=== PATIENT | female | born 1955 | race Caucasian/White ===

== ENCOUNTER 2017-08-12 07:01 | Day surgery (SDC) | payer OTHER ==
[~2017-08-12] VITALS: Ht 170.2 cm; Wt 113.3 kg
[~2017-08-12 07:01] MED LIST: ASPI1TAB PO; CALC12502 PO; CARV25TA PO; IRON1TAB PO; K-TA1TAB PO; LISI10TA4 PO; MAGN1TAB25 PO; MULT1TAB16 PO; TORS10TA3 PO; VITA-176 PO; VITA500T53 PO
[2017-08-12] MEDS ORDERED: NS 1,000 ML IV ONE (07:30)
[2017-08-12] MEDS ORDERED: LIDOCAINE 2% INJ 100 MG/5 ML SDV (FOR ANES.) As Ordered ONE (08:40)
[2017-08-12] MEDS ORDERED: PROPOFOL 200 MG/20 ML VIAL As Ordered ONE ×2 (08:40→08:59)
--- NOTE | 2017-08-12 09:17 | ROOR ---
Patient Name: Renetta Bunn Procedure Date: 08/12/2017 8:32 AM Date of : 1955 Age: 61 Room: [facility] Gender: Female Note Status: Finalized Procedure: Colonoscopy Indications: Screening for colorectal malignant neoplasm Providers: Wilfredo Bergeron MD Referring MD: ISSA JONAS MD Requesting Provider: Medicines: Monitored Anesthesia Care Complications: No immediate complications. Procedure: Pre-Anesthesia Assessment: - Prior to the procedure, a History and Physical was performed, and patient medications and allergies were reviewed. The patient is competent. The risks and benefits of the procedure and the sedation options and risks were discussed with the patient. All questions were answered and informed consent was obtained. Patient identification and proposed procedure were verified by the physician, the nurse and the automobile body customizer in the procedure room. Mental Status Examination: alert and oriented. Airway Examination: normal oropharyngeal airway and neck mobility. Respiratory Examination: clear to auscultation. CV Examination: normal. Prophylactic Antibiotics: The patient does not require prophylactic antibiotics. Prior Anticoagulants: The patient has taken no previous anticoagulant or antiplatelet agents. ASA Grade Assessment: II - A patient with mild systemic disease. After reviewing the risks and benefits, the patient was deemed in satisfactory condition to undergo the procedure. The anesthesia plan was to use moderate sedation / analgesia (conscious sedation). Immediately prior to administration of medications, the patient was re-assessed for adequacy to receive sedatives. The heart rate, respiratory rate, oxygen saturations, blood pressure, adequacy of pulmonary ventilation, and response to care were monitored throughout the procedure. The physical status of the patient was re-assessed after the procedure. The Colonoscope was introduced through the anus and advanced to the cecum, identified by appendiceal orifice and ileocecal valve. The colonoscopy was performed without difficulty. The patient tolerated the procedure well. The quality of the bowel preparation was good. The ileocecal valve, appendiceal orifice, and rectum were photographed. Scope insertion time was 4 minutes. Scope withdrawal time was 10 minutes. The total duration of the procedure was 14 minutes. Findings: The perianal and digital rectal examinations were normal. Multiple small and large-mouthed diverticula were found from sigmoid to ascending colon. There was no evidence of diverticular bleeding. Localized mild inflammation characterized by congestion (edema), erythema and granularity was found in the distal sigmoid colon around the diverticular opening - suspicious for focal diverticulitis. Biopsies were taken with a cold forceps for histology. Verification of patient identification for the specimen was done by the physician and nurse using the patient's name, date and medical record number. Estimated blood loss was minimal. For hemostasis, one hemostatic clip was successfully placed. There was no bleeding at the end of the procedure. Non-bleeding external and internal hemorrhoids were found during retroflexion. The hemorrhoids were medium-sized. Impression: - Severe diverticulosis from sigmoid to ascending colon. There was no evidence of diverticular bleeding. - Localized mild inflammation was found in the distal sigmoid colon. Biopsied. Clip was placed. - Non-bleeding external and internal hemorrhoids. Recommendation: - Patient has a contact number available for emergencies. The signs and symptoms of potential delayed complications were discussed with the patient. Return to normal activities tomorrow. Written discharge instructions were provided to the patient. - High fiber diet. - Continue present medications. - Cipro (ciprofloxacin) 500 mg PO BID for 5 days. - Flagyl (metronidazole) 500 mg PO TID for 5 days. - Await pathology results. - Repeat colonoscopy in 10 years for screening purposes. - Return to GI clinic in 10 years. - Return to primary care physician. Wilfredo Bergeron MD Wilfredo Bergeron MD 08/12/2017 9:17:24 AM This report has been signed electronically. Number of Addenda: 0 Note Initiated On: 08/12/2017 8:32 AM Estimated Blood Loss: Estimated blood loss was minimal.
[2017-08-12 09:30] VITALS: BP 144/69
== END 2017-08-12 09:40 | disposition home or self-care (01) ==
LOC: M OPP 07:01
PROVIDERS: ATTEND Internal Medicine Gastroenterology
DX: Z12.11 Encounter for screening for malignant neoplasm of colon (principal); K63.89 Other specified diseases of intestine; K57.30 Diverticulosis of large intestine without perforation or abscess without bleeding; K64.8 Other hemorrhoids; K64.4 Residual hemorrhoidal skin tags; I10 Essential (primary) hypertension; E78.5 Hyperlipidemia, unspecified; Z95.810 Presence of automatic (implantable) cardiac defibrillator; I42.9 Cardiomyopathy, unspecified; G62.9 Polyneuropathy, unspecified; G47.30 Sleep apnea, unspecified; R06.83 Snoring; Z98.84 Bariatric surgery status; Z87.442 Personal history of urinary calculi; Z79.82 Long term (current) use of aspirin; Z79.899 Other long term (current) drug therapy

== ENCOUNTER → 2019-09-03 | Outpatient (REF) | payer OTHER ==
[~2019-09-03] MED LIST changes: -ASPI1TAB PO; +ASPI81TA26 PO; -CALC12502 PO; +CALC500T60 PO; -MAGN1TAB25 PO; +MAGN1TAB26 PO; +VITA500T17 PO; -VITA500T53 PO
== END ==
LOC: M LAB LCGH 18:04
PROVIDERS: ATTEND Family Medicine
DX: D48.5 Neoplasm of uncertain behavior of skin (principal)

== ENCOUNTER → 2022-08-29 | Outpatient (REF) | payer OTHER ==
[~2022-08-29] MED LIST changes: +LISI10TA22 PO; -LISI10TA4 PO
== END ==
LOC: M LAB REF 13:49
PROVIDERS: ATTEND Ophthalmology
DX: H02.824 Cysts of left upper eyelid (principal)